=== PATIENT | female | born 1980 | race Two or more races ===

== ENCOUNTER 2020-12-07 12:41 | Emergency (ER) | payer MEDICAID ==
[~2020-12-07] VITALS: Ht 154.9 cm; Wt 59.9 kg
[2020-12-07 12:48] VITALS: BP 145/88
== END 2020-12-07 16:00 | disposition home or self-care (01) ==
LOC: ER 12:41
DX: S93.401A Sprain of unspecified ligament of right ankle, initial encounter (principal); S80.11XA Contusion of right lower leg, initial encounter; Z90.89 Acquired absence of other organs; W20.8XXA Other cause of strike by thrown, projected or falling object, initial encounter; Y93.89 Activity, other specified; Y92.89 Other specified places as the place of occurrence of the external cause; Y99.8 Other external cause status
CPT/HCPCS: 29515; 73590; 73630; 93971